=== PATIENT | male | born 1980 | race African-American/Black ===

== ENCOUNTER 2016-10-14 01:19 | Observation (INO) | payer OTHER ==
[~2016-10-14] VITALS: Ht 177.8 cm; Wt 125.0 kg
[2016-10-14 01:22] VITALS: BP 212/98; PULSE 105; RESP 20; TEMP 98.3; O2SAT 98
[2016-10-14] MEDS ORDERED: ITRA100C PO (01:29)
[2016-10-14 02:13] LABS: AUTOMATED NEUTROPHIL # 3.9 TH/MM3 (1.8-7.7); BASOPHIL # 0.1 TH/MM3 (0-0.2); BASOPHIL % 0.8 % (0.0-2.0); EOSINOPHIL # 0.1 TH/MM3 (0-0.4); EOSINOPHIL % 0.9 % (0.0-4.0); HEMATOCRIT 45.6 % (39.0-51.0); HEMO FLAGS DIFF FINAL; LYMPH % 38.1 % (9.0-44.0); LYMPHOCYTE # 2.9 TH/MM3 (1.0-4.8); MEAN CELL VOLUME 88.5 FL (80.0-100.0); MEAN CORPUSCULAR HEMOGLOBIN 30.5 PG (27.0-34.0); MEAN CORPUSCULAR HGB CONC 34.5 % (32.0-36.0); NEUT % 51.2 % (16.0-70.0); PLATELET COUNT 278 TH/MM3 (150-450); RED BLOOD COUNT 5.15 MIL/MM3 (4.50-5.90); RED CELL DISTRIBUTION WIDTH 12.9 % (11.6-17.2); WHITE BLOOD COUNT 7.5 TH/MM3 (4.0-11.0)
--- NOTE | 2016-10-14 02:26 | RADRPT ---
EXAM DATE/TIME: 10/14/2016 02:22 [place] COMPARISON: No previous studies available for comparison. INDICATIONS : Shortness of breath, chest pain. MEDICAL HISTORY : None. SURGICAL HISTORY : None. ENCOUNTER: Initial ACUITY: 2 days PAIN SCORE: 10/10 LOCATION: Left chest FINDINGS: A single view of the chest demonstrates the lungs to be symmetrically aerated without evidence of mas s, infiltrate or effusion. The cardiomediastinal contours are unremarkable. Osseous structures are intact. CONCLUSION: No acute cardiopulmonary process. Renato Martins MD on October 14, 2016 at 2:24 Board Certified Radiologist. This report was verified electronically.
[2016-10-14 02:40] LABS: ALKALINE PHOSPHATASE 90 U/L (45-117); TOTAL BILIRUBIN ADULT 0.2 MG/DL (0.2-1.0)
[2016-10-14] MEDS ORDERED: SODIUM CHLORIDE 0.9% FLUSH 5 ML FLUSH IVF PRN ×2 (02:45→04:45)
[2016-10-14] MEDS ORDERED: PANTOPRAZOLE SODIUM 40 MG VIAL IV PUSH ONE (02:45)
[2016-10-14] MEDS ORDERED: SODIUM CHLORID 0.9% 500 ML INJ 500 ML IV ONE (02:45)
[2016-10-14 02:46] LABS: ALT (GPT) 53 U/L (12-78); ANION GAP 10 MEQ/L (5-15); AST (GOT) 43 U/L (15-37); BICARBONATE 27.9 MEQ/L (21.0-32.0); BLOOD UREA NITROGEN 10 MG/DL (7-18); CHLORIDE 105 MEQ/L (98-107); GLOMERULAR FILTRATION RATE 105 ML/MIN (>89); SODIUM (NA) 143 MEQ/L (136-145)
--- NOTE | 2016-10-14 03:18 | PD ---
HPI Chief Complaint: Chest Pain Time Seen by Provider: 02:36 Travel History International Travel<30 days: No Contact w/Intl Traveler<30days: No Traveled to known affect area: No History of Present Illness HPI The patient is a 35 year old male who presents to the [facility] emergency department with a history of left-sided chest pain that he reports began at approximately 11 PM on Wednesday night. He reports that the pain as being constant. The patient reports that the pain is worse when he presses on the left side of his chest at which time it becomes sharp, however he continues to feel it even when he does not touch the area. He denies any trauma to the area , heavy lifting, or new exercise program. He reports that he feels short of breath related to a and nauseated. He denies having any diaphoresis. He reports having subjective chills. The patient denies having any cough or congestion. He denies having any sore throat. He reports that he has been diagnosed with dyslipidemia in the past, however he has not had a physical in the last 2 years. He denies having any prior history of hypertension or diabetes mellitus. He denies having any significant family history of heart disease. He denies smoking. The patient denies any prior history of DVT or PE. The patient denies having any symptoms of heartburn or reflux. He reports that he did take BC powder this evening, however he does not take them on a regular basis. The patient denies any neck pain, abdominal pain, vomiting, diarrhea, urinary symptoms, or neurologic symptoms. PFS Past Medical History Narrative Medical The patient's past medical history is significant for tinea versicolor for which he's been on Itraconazole monthly since August, history of dyslipidemia, history of kidney stones. Autoimmune Disease: No Cancer: No Cardiovascular Problems: No Diabetes: No Diminished Hearing: No Endocrine: No Genitourinary: No Hepatitis: No Hiatal Hernia: No Immune Disorder: No Kidney Stones: Yes Musculoskeletal: No Neurologic: No Psychiatric: No Reproductive: No Respiratory: No Integumentary: Yes Immunizations Current: Yes Thyroid Disease: No Tetanus Vaccination: > 5 Years Influenza Vaccination: No Past Surgical History Narrative Surgical The patient's past surgical history is significant for an appendectomy, lithotripsy with ureteral stent placement and then removal, knee surgery. Abdominal Surgery: Yes (appendectomy - 2006) AICD: No Appendectomy: Yes Body Medical Devices: RIGHT KIDNEY STENT Cardiac Surgery: No Ear Surgery: No Endocrine Surgery: No Eye Surgery: No Genitourinary Surgery: Yes (RIGHT RENAL STENT) Gynecologic Surgery: No Joint Replacement: No Oral Surgery: No Pacemaker: No Thoracic Surgery: No Other Surgery: Yes Social History Alcohol Use: Yes (every other day 2-3 glasses of wine) Tobacco Use: No Substance Use: No Allergies-Medications (Allergen,Severity, Reaction): Coded Allergies: No Known Allergies (Verified , 04/04/14) Reported Meds & Prescriptions Reported Meds & Active Scripts Active Reported Itraconazole 100 Mg Cap 400 Mg PO MONTHLY Review of Systems Except as stated in HPI: all other systems reviewed are Neg General / Constitutional: Positive: Chills, No: Fever Eyes: No: Visual changes HENT: No: Headaches Cardiovascular: Positive: Chest Pain or Discomfort, Dyspnea on exertion Respiratory: Positive: Shortness of Breath, No: Cough Gastrointestinal: Positive: Nausea, No: Vomiting, Diarrhea, Abdominal Pain, Changes in Bowel Habits, Indigestion, Loss of Appetite Genitourinary: No: Dysuria Musculoskeletal: No: Pain Skin: No Rash Neurologic: No: Weakness Psychiatric: No: Depression Endocrine: No: Polydipsia Hematologic/Lymphatic: No: Easy Bruising Physical Exam Narrative General: The patient is a well-developed well-nourished male in no acute distress. Head and Neck exam: Head is normocephalic atraumatic. Eyes: EOMI, pupils are equal round and reactive to light. Nose: Midline septum with pink mucous membranes Mouth: Dentition unremarkable. Moist mucus membranes. Posterior oropharynx is not erythematous. No tonsillar hypertrophy. Uvula midline. Airway patent. Neck: No palpable lymphadenopathy. No nuchal rigidity. No thyromegaly. Cardiovascular: Regular rate and rhythm without murmurs, gallops, or rubs. The patient on examination of the left chest wall has tenderness on palpation over his pectoral muscle. There is no step-off or crepitus. No erythema or ecchymosis. No flail segment. Lungs: Clear to auscultation bilaterally. No wheezes, rhonchi, or rales. Abdomen: Soft, without tenderness to palpation in all 4 quadrants of the abdomen. No guarding, rebound, or rigidity. Normal bowel sounds are audible. Extremities: No clubbing, cyanosis, or edema. 2+ pulses in all 4 extremities. No calf tenderness on palpation. Back: No spinous process tenderness to palpation. No costovertebral angle tenderness to palpation. Neurologic Exam: Grossly nonfocal. Skin Exam: No rash noted. Intact skin that is warm and dry. Data Data Last Documented VS Vital Signs Date Time Temp Pulse Resp B/P Pulse Ox O2 Delivery O2 Flow Rate FiO2 10/14/16 04:00 92 16 163/77 96 Room Air 10/14/16 01:22 98.3 Orders Complete Blood Count With Diff (10/14/16 01:27) Comprehensive Metabolic Panel (10/14/16 01:27) Chest, Single Ap (10/14/16 ) Electrocardiogram (10/14/16 ) Ckmb (Isoenzyme) Profile (10/14/16 02:38) D-Dimer (10/14/16 02:38) Magnesium (Mg) (10/14/16 02:38) Troponin I (10/14/16 02:38) Lipase (10/14/16 02:38) Sodium Chloride 0.9% Flush (Ns Flush) (10/14/16 02:45) Pantoprazole Inj (Protonix Inj) (10/14/16 02:45) Sodium Chlorid 0.9% 500 Ml Inj (Ns 500 M (10/14/16 02:45) Aspirin Chew (Aspirin Chew) (10/14/16 03:30) Nitroglycerin Sl (Nitrostat Sl) (10/14/16 03:30) CKMB (10/14/16 03:05) CKMB% (10/14/16 03:05) Admit Order (Ed Use Only) (10/14/16 04:38) Place In Observation (10/14/16 04:38) Activity Bed Rest With Brp (10/14/16 04:38) Vital Signs (Adult) Q4H (10/14/16 04:38) Cardiac Rhythm .As Directed (10/14/16 04:38) ^ Notify Dr: Other .PRN (10/14/16 04:38) ^ Notify Dr. Parameters (10/14/16 04:38) Resp Oxygen Nasal Cannula (10/14/16 ) Diet Npo (10/14/16 Breakfast) Ckmb (Isoenzyme) Profile (10/14/16 06:00) Ckmb (Isoenzyme) Profile (10/14/16 09:00) Troponin I (10/14/16 06:00) Troponin I (10/14/16 09:00) Electrocardiogram (10/14/16 06:00) Electrocardiogram (10/14/16 09:00) ^ Obtain (10/14/16 04:38) Sodium Chloride 0.9% Flush (Ns Flush) (10/14/16 04:45) Sodium Chloride 0.9% Flush (Ns Flush) (10/14/16 09:00) Acetaminophen (Tylenol) (10/14/16 04:45) Ondansetron Inj (Zofran Inj) (10/14/16 04:45) Pantoprazole (Protonix) (10/14/16 09:00) Vinyl Hanger / Telemetry MELINA.Q8H (10/14/16 04:38) CKMB (10/14/16 06:25) CKMB% (10/14/16 06:25) Labs Laboratory Tests Test 10/14/16 10/14/16 02:04 03:05 White Blood Count 7.5 TH/MM3 Red Blood Count 5.15 MIL/MM3 Hemoglobin 15.7 GM/DL Hematocrit 45.6 % Mean Corpuscular Volume 88.5 FL Mean Corpuscular Hemoglobin 30.5 PG Mean Corpuscular Hemoglobin 34.5 % Concent Red Cell Distribution Width 12.9 % Platelet Count 278 TH/MM3 Mean Platelet Volume 7.8 FL Neutrophils (%) (Auto) 51.2 % Lymphocytes (%) (Auto) 38.1 % Monocytes (%) (Auto) 9.0 % Eosinophils (%) (Auto) 0.9 % Basophils (%) (Auto) 0.8 % Neutrophils # (Auto) 3.9 TH/MM3 Lymphocytes # (Auto) 2.9 TH/MM3 Monocytes # (Auto) 0.7 TH/MM3 Eosinophils # (Auto) 0.1 TH/MM3 Basophils # (Auto) 0.1 TH/MM3 CBC Comment DIFF FINAL Differential Comment Sodium Level 143 MEQ/L Potassium Level 4.0 MEQ/L Chloride Level 105 MEQ/L Carbon Dioxide Level 27.9 MEQ/L Anion Gap 10 MEQ/L Blood Urea Nitrogen 10 MG/DL Creatinine 0.99 MG/DL Estimat Glomerular Filtration 105 ML/MIN Rate Random Glucose 109 MG/DL Calcium Level 8.9 MG/DL Total Bilirubin 0.2 MG/DL Aspartate Amino Transf 43 U/L (AST/SGOT) Alanine Aminotransferase 53 U/L (ALT/SGPT) Alkaline Phosphatase 90 U/L Total Protein 7.4 GM/DL Albumin 4.0 GM/DL D-Dimer Quantitative (PE/DVT) 0.29 MG/L FEU Magnesium Level 2.2 MG/DL Total Creatine Kinase 318 U/L Creatine Kinase MB 2.2 NG/ML Creatine Kinase MB % 0.7 % Troponin I LESS THAN 0.02 NG/ML Lipase 141 U/L MDM Medical Decision Making Medical Screen Exam Complete: Yes Emergency Medical Condition: Yes Medical Record Reviewed: Yes Interpretation(s) Last Impressions Chest X-Ray 10/14/16 0000 Signed Impressions: Service Date/Time: Friday, October 14, 2016 02:22 - CONCLUSION: No acute cardiopulmonary process. Renato Martins MD Differential Diagnosis Costochondritis, versus muscle strain, versus acute coronary syndrome, versus pneumonia, versus pleurisy, versus pneumothorax, versus pulmonary embolism Narrative Course During the course of the patients emergency department visit, the patients history, examination, and differential diagnosis were reviewed with the patient. The patient had IV access obtained and blood work sent for analysis. The patient was placed on a surveillance monitor with oximetry and blood pressure monitoring. An EKG was ordered. The patient was provided aspirin 162 mg by mouth 1, nitroglycerin sublingual 1 , Protonix 40 mg IV. The patients laboratory studies were reviewed and remarkable for a CBC that is unremarkable, CMP shows a glucose of 109, AST 43, 2 BKS 318 with 0.7 MB percent , troponin I 0.02, lipase 141, d-dimer is 0.29 decreased the likelihood of pulmonary embolism in this patient with no other significant risk factors. Radiology studies were reviewed and remarkable for a chest x-ray that shows no acute cardiopulmonary process. The patients results were discussed with the patient, including the plan of care. I explained that further testing and/ or monitoring is indicated based on the patients history, examination, and/ or laboratory findings. Therefore, I recommended admission for additional evaluation. The patient expressed understanding and was agreeable with this plan. The patient was admitted to the hospital in stable condition and sent to a bed under the care of the chest pain center. Diagnosis Primary Impression: Chest pain, rule out acute myocardial infarction Admitting Information Admitting Physician Requests: Observation Fauzia Cisse MD Oct 14, 2016 03:17
[2016-10-14 03:22] VITALS: BP 176/88; PULSE 100; RESP 18; O2SAT 98
[2016-10-14] MEDS ORDERED: NITROGLYCERIN 0.4 MG SL 25 TABS/BTL SL ONE (03:30)
[2016-10-14] MEDS ORDERED: ASPIRIN 81 MG CHEW TAB CHEW ONE (03:30)
[2016-10-14 03:49] LABS: CREATINE KINASE 318 U/L (39-308)
[2016-10-14 03:50] LABS: MAGNESIUM 2.2 MG/DL (1.5-2.5)
[2016-10-14 04:00] VITALS: BP 163/77; PULSE 92; RESP 16; O2SAT 96
[2016-10-14 04:03] LABS: CKMB 2.2 NG/ML (0.5-3.6)
[2016-10-14] MEDS ORDERED: ACETAMINOPHEN 500 MG CPLT PO PRN (04:45)
[2016-10-14] MEDS ORDERED: ONDANSETRON HCL 4 MG/2 ML VIAL IV PRN (04:45)
[2016-10-14 06:00] VITALS: BP 167/88; PULSE 93; RESP 18; O2SAT 98
[2016-10-14 07:17] LABS: CREATINE KINASE 249 U/L (39-308)
[2016-10-14 07:29] LABS: CKMB 2.2 NG/ML (0.5-3.6)
[2016-10-14 07:48] VITALS: O2SAT 96
[2016-10-14] MEDS ORDERED: amLODIPine BESYLATE 5 MG TAB PO ONE (08:00)
--- NOTE | 2016-10-14 08:41 | HHI.HP ---
HPI Primary Care Physician Jasper Ricci M.D. Chief Complaint Chest pain History of Present Illness This is a 35-year-old male that presents to ED with a complaint of chest discomfort. He states that began last night constantly however is worsened whenever he touches the area or does certain movements. He felt a little short of breath initially. No nausea or diaphoresis. Denies history of CAD. Had a similar episode in 2007 and was evaluated but could find nothing wrong. He denies recent illness. Denies fevers or chills. Review of Systems General: Patient denies fevers, chills recent, and recent travel HEENT: Patient denies headache, sore throat, difficulty swallowing. Cardiovascular: Has the chest discomfort as mentioned above. Denies sensation of heart beating rapidly or irregularly. Denies diaphoresis. No syncope. Respiratory: Patient was initially little short of breath. Denies or inspirational chest discomfort. Denies coughing wheezing or hemoptysis. GI: Patient denies nausea, vomiting, diarrhea, abdominal pain, bloody stools. Musculoskeletal: Patient denies joint pain or edema. Denies calf pain or edema. Neurovascular: Patient denies numbness, tingling, weakness in extremities. Denies headache. Endocrine: Denies polyuria and polydipsia. Hematologic: Denies easy bruising. Skin: Denies rash or itching. Past Family Social History Allergies: Coded Allergies: No Known Allergies (Verified , 04/04/14) Past Medical History Denies hypertension, hyperlipidemia, diabetes, and CAD. Past Surgical History Noncontributory. Reported Medications Reported Meds & Active Scripts Active Reported Itraconazole 100 Mg Cap 400 Mg PO MONTHLY Active Ordered Medications Current Medications Medications (Trade) Dose Ordered Sig/Thiago Route Start Time Stop Time Status Last Admin (NS Flush) 2 ml UNSCH PRN IVF 10/14/16 02:45 (NS Flush) 2 ml UNSCH PRN IVF 10/14/16 04:45 (NS Flush) 2 ml BID IVF 10/14/16 09:00 (Tylenol) 500 mg Q4H PRN PO 10/14/16 04:45 (Zofran Inj) 4 mg Q6H PRN IV 10/14/16 04:45 (Protonix) 40 mg DAILY PO 10/14/16 09:00 (Toradol Inj) 30 mg ONCE ONCE IVP 10/14/16 08:00 10/14/16 08:01 UNV Family History Denies family history of CAD. Social History Patient is a nonsmoker. Denies alcohol or illicit drugs. Physical Exam Vital Signs Vital Signs Date Time Temp Pulse Resp B/P Pulse Ox O2 Delivery O2 Flow Rate FiO2 10/14/16 07:48 96 21 10/14/16 06:00 93 18 167/88 98 Room Air 10/14/16 04:00 92 16 163/77 96 Room Air 10/14/16 03:45 18 10/14/16 03:22 100 18 176/88 98 Room Air 10/14/16 01:29 16 10/14/16 01:22 98.3 105 20 212/98 98 Room Air Physical Exam GENERAL: This is a well-nourished, well-developed patient, in no apparent distress. Patient speaks in clear complete sentences. Patient is pleasant. HEENT: Head is atraumatic and normocephalic. Neck is supple without lymphadenopathy and trachea is midline. No JVD or carotid bruits. CARDIOVASCULAR: Regular rate and rhythm without murmurs, gallops, or rubs. RESPIRATORY: Left upper chest wall is tender to palpate. This is worsening discomfort that he has been having. Clear to auscultation. Breath sounds equal bilaterally. No wheezes, rales, or rhonchi. No use of accessory muscles. GASTROINTESTINAL: Abdomen is nontender, nondistended. Abdomen soft. No obvious pulsatile mass or bruit. No CVA tenderness. Strong femoral pulses bilaterally. Normal bowel sounds in all quadrants. MUSCULOSKELETAL: Patient is moving upper and lower extremities freely. No calf tenderness or edema, no Homans sign. Strong pulses in upper and lower extremities. NEUROLOGICAL: Patient is alert and oriented. Cranial nerves 2-12 are grossly intact. No focal deficits and speech is clear. SKIN: No rash and turgor is normal. Laboratory Laboratory Tests Test 10/14/16 10/14/16 10/14/16 02:04 03:05 06:25 White Blood Count 7.5 Red Blood Count 5.15 Hemoglobin 15.7 Hematocrit 45.6 Mean Corpuscular Volume 88.5 Mean Corpuscular Hemoglobin 30.5 Mean Corpuscular Hemoglobin 34.5 Concent Red Cell Distribution Width 12.9 Platelet Count 278 Mean Platelet Volume 7.8 Neutrophils (%) (Auto) 51.2 Lymphocytes (%) (Auto) 38.1 Monocytes (%) (Auto) 9.0 Eosinophils (%) (Auto) 0.9 Basophils (%) (Auto) 0.8 Neutrophils # (Auto) 3.9 Lymphocytes # (Auto) 2.9 Monocytes # (Auto) 0.7 Eosinophils # (Auto) 0.1 Basophils # (Auto) 0.1 CBC Comment DIFF FINAL Differential Comment Sodium Level 143 Potassium Level 4.0 Chloride Level 105 Carbon Dioxide Level 27.9 Anion Gap 10 Blood Urea Nitrogen 10 Creatinine 0.99 Estimat Glomerular Filtration 105 Rate Random Glucose 109 Calcium Level 8.9 Total Bilirubin 0.2 Aspartate Amino Transf 43 (AST/SGOT) Alanine Aminotransferase 53 (ALT/SGPT) Alkaline Phosphatase 90 Total Protein 7.4 Albumin 4.0 D-Dimer Quantitative (PE/DVT) 0.29 Magnesium Level 2.2 Total Creatine Kinase 318 249 Creatine Kinase MB 2.2 2.2 Creatine Kinase MB % 0.7 Troponin I LESS THAN 0.02 LESS THAN 0.02 Lipase 141 Result Diagram: 10/14/16 0204 10/14/16 0204 Imaging Last Impressions Chest X-Ray 10/14/16 0000 Signed Impressions: Service Date/Time: Friday, October 14, 2016 02:22 - CONCLUSION: No acute cardiopulmonary process. Renato Martins MD Course EKGs have sinus rhythm without significant ST segment depressions or elevations. Assessment and Plan Assessment and Plan * Atypical chest pain: Patient has had serial cardiac enzymes and EKGs for ruling out purposes. He has been seen by Dr. Yuan Quan of cardiology and the chest and center. His discomfort appears to be musculoskeletal in nature and not cardiac. He will undergo a Fabián protocol ETT and if that were to be nonischemic U be discharged home with instructions to follow local physician. We will give him 30 mg of Toradol IV 1. * Hypertension: We'll start amlodipine. Patient is stable at this time. He is agreeable to this plan. Tristan Naylor Oct 14, 2016 08:41
[2016-10-14] MEDS ORDERED: KETOROLAC TROMETHAMINE 30 MG/ML (IVP) VIAL IVP ONE (08:45)
[2016-10-14] MEDS ORDERED: PANTOPRAZOLE SOD 40 MG DELAYED RELEASE TAB PO SCH (09:00)
[2016-10-14] MEDS ORDERED: SODIUM CHLORIDE 0.9% FLUSH 5 ML FLUSH IVF SCH (09:00)
[2016-10-14] MEDS ORDERED: AMLO5TAB2 PO (09:13)
--- NOTE | 2016-10-14 09:13 | HHI.DCPOC ---
Discharge Care Plan Diagnosis: (1) Chest pain, atypical (2) Hypertension Goals to Promote Your Health * To prevent worsening of your condition and complications * To maintain your health at the optimal level Directions to Meet Your Goals Take your medications as prescribed Follow your dietary instruction Follow activity as directed Keep your appointments as scheduled Take your immunizations and boosters as scheduled If your symptoms worsen call your PCP, if no PCP go to Urgent Care Center or Emergency Room Smoking is Dangerous to Your Health. Avoid second hand smoke Call the 24-hour hour crisis hotline for domestic abuse at Tristan Naylor Oct 14, 2016 09:13
[2016-10-14 09:18] VITALS: BP 173/86; PULSE 100; RESP 18; O2SAT 96
--- NOTE | 2016-10-14 12:26 | EKG ---
Date Performed: 10/14/2016 Time Performed: 06:29:43 PTAGE: 35 years EKG: Sinus rhythm NORMAL ECG PREVIOUS TRACING : 10/14/2016 01.42 Since previous tracing, no significant change noted DOCTOR: Yuan Quan Interpretating Date/Time 10/14/2016 12:24:44
--- NOTE | 2016-10-14 12:26 | EKG ---
Date Performed: 10/14/2016 Time Performed: 01:42:19 PTAGE: 35 years EKG: SINUS TACHYCARDIA POSSIBLE RIGHT VENTRICULAR CONDUCTION DELAY ABNORMAL RHYTHM ECG PREVIOUS TRACING : 11/06/2010 20.32 Since previous tracing, no significant change noted DOCTOR: Yuan Quan Interpretating Date/Time 10/14/2016 12:25:07
--- NOTE | 2016-10-14 12:30 | TR ---
Date Performed: 10/14/2016 Time Performed: 08:35:59 DOCTOR: Yuan Quan DRUG LIST: CLINICAL HISTORY: REASON FOR TEST: REASON FOR ENDING: OBSERVATION: CONCLUSION: DEVIKA PROTOCOL. NO CP. TEST STOPPED AFTER EXCEEDING GOAL HR SECONDARY TO SOB AND LEG FATIGUE.Maximum JD=830 % Max HR Achieved=99.0% Maximum IY=754/86 Total Exercise Time=10:00 COMMENTS: Patient exercised using the Devika protocol. No electrocardiographic changes were seen to suggest ischemia. Hemodynamic response to exercise was normal. No significant arrhythmia was prese nt.
== END 2016-10-14 10:00 | disposition home or self-care (01) ==
LOC: NEPC 01:19 → NEDA 04:41
PROVIDERS: ADMIT Internal Medicine Interventional Cardiology; ATTEND Internal Medicine Interventional Cardiology
DX: R07.89 Other chest pain (principal); I10 Essential (primary) hypertension; Z87.442 Personal history of urinary calculi; E78.5 Hyperlipidemia, unspecified
CPT/HCPCS: 71010; 80053; 82550; 82552; 83690; 83735; 84484; 85025; 85379; 93005; 93017; 96361; 96374; 99285; C9113; G0378; J1885; J7040